=== PATIENT | female | born 1970 | race Two or more races ===

== ENCOUNTER → 2017-02-04 | Outpatient (CLI) | payer BC | END | disposition home or self-care (01) | LOC: CFH 09:25 | PROVIDERS: ATTEND Nurse Practitioner Women's Health | DX: Z12.31 Encounter for screening mammogram for malignant neoplasm of breast (principal) | CPT/HCPCS: G0202 ==

== ENCOUNTER → 2018-04-05 | Outpatient (CLI) | payer OTHER | END | disposition home or self-care (01) | LOC: CFH 09:55 | PROVIDERS: ATTEND Nurse Practitioner Women's Health | DX: Z12.31 Encounter for screening mammogram for malignant neoplasm of breast (principal) | CPT/HCPCS: 77067 ==

== ENCOUNTER 2019-11-30 08:35 | Day surgery (SDC) | payer OTHER ==
[~2019-11-30] VITALS: Ht 152.4 cm; Wt 61.0 kg
--- NOTE | 2019-11-30 08:50 | NUR ---
CHAMP RN PRESENT DURING EKG. PT TOLERATED WITH NO COMPLICATIONS. PT REFUSES WHEELCHAIR TO BE TAKEN BACK TO ROOM
--- NOTE | 2019-11-30 09:12 | NUR ---
RN to bedside after being assessed by midlevel provider. Patient in room with family member. Patient is alert, oriented, changed into hospital gown. Patient is walking around in room. Awaiting orders.
[2019-11-30] MEDS ORDERED: ONDANSETRON 2MG/ML, 2ML IVPush ONE (09:30)
[2019-11-30] MEDS ORDERED: SODIUM CHLORIDE FLUSH 10ML SYR IVF ONE (09:30)
--- NOTE | 2019-11-30 09:37 | NUR ---
ATTEMPTED US...PT GETTING IV
[2019-11-30] MEDS ORDERED: ONDANSETRON 2MG/ML, 2ML ONE ×2 (09:45→12:34)
[2019-11-30] MEDS ORDERED: HYDROmorphone 1 MG/ML, 1ML INJ ONE ×2 (09:45→11:25)
[2019-11-30 09:52] VITALS: BP 133/76
[2019-11-30] MEDS: HYDROmorphone 2 MG/ML, 1ML IVPush PRN ×2 (09:52→11:41)
[2019-11-30 10:00] LABS: MEAN CORPUSCULAR HEMOGLOBIN 30.2 pg (27.0-34.8); MEAN CORPUSCULAR HGB CONC 33.7 g/dL (32.4-35.8); MEAN CORPUSCULAR VOLUME 89.6 fL (80-100); MEAN PLATELET VOLUME 8.9 fL (7.4-10.4); PLATELET COUNT 397 x10^3/uL (130-400); RED BLOOD COUNT 5.01 x10^6/uL (3.82-5.3); RED CELL DISTRIBUTION WIDTH 13.5 % (9.6-15.2)
[2019-11-30 10:03] LABS: ALANINE AMINOTRANSFERASE 25 U/L (12-78); ANION GAP 7 mmol/L (5-15); CALCIUM 9.3 mg/dL (8.5-10.1); CHLORIDE 107 mmol/L (98-107); CREATININE 0.85 mg/dL (0.55-1.02)
[2019-11-30 10:08] LABS: ALKALINE PHOSPHATASE 95 U/L (45-117); BILIRUBIN,TOTAL 0.4 mg/dL (0.2-1.0); TOTAL PROTEIN 7.9 g/dL (6.4-8.2)
[2019-11-30 10:30] LABS: MD YES
[2019-11-30 10:32] LABS: BAND#(MANUAL) 1.16 x10^3/uL; BANDS%(MANUAL) 6 % (0-7); LYMPH#(MANUAL) 1.75 x10^3/uL (1-3.4); LYMPHS% (MANUAL) 9 % (22-44); MONOS#(MANUAL) 0.78 x10^3/uL (0.3-2.7); MONOS% (MANUAL) 4 % (2-9); SEG#(MANUAL) 15.71 x10^3/uL (1.8-6.8); SEGS% (MANUAL) 81 % (42-75)
[2019-11-30 10:33] LABS: <PLATELET ESTIMATE> ADEQUATE; <PLT MORPHOLOGY> NORMAL PLT MORPH; <RBC MORPHOLOGY> NORMAL
[2019-11-30 10:36] LABS: MICROSCOPIC AUTO
[2019-11-30 10:37] LABS: CULTURE INDICATED? NO
[2019-11-30] MEDS ORDERED: CEFOTETAN PMX 1GM/50ML 50 ML ONE (11:25)
[2019-11-30] MEDS ORDERED: CEFOTETAN PMX 1GM/50ML 50 ML IV ONE (11:30)
[2019-11-30] MEDS ORDERED: LACTATED RINGERS 1,000 ML IVBOLUS ONE (11:30)
[2019-11-30] MEDS ORDERED: BUPIVACAINE/PF-EPI 0.25% 1:200K ONE (11:48)
[2019-11-30] MEDS ORDERED: CHLORHEXIDINE 15 ML UDC MM ONE (12:00)
[2019-11-30] MEDS ORDERED: PROPOFOL 50 ML ONE (12:01)
[2019-11-30] MEDS ORDERED: FENTANYL PF 250 MCG/5ML ONE (12:01)
[2019-11-30] MEDS ORDERED: MIDAZOLAM 1 MG/ML, 2ML ONE (12:01)
[2019-11-30] MEDS ORDERED: SUCCINYLCHOLINE 20 MG/ML, 10ML ONE (12:24)
[2019-11-30] MEDS ORDERED: PROPOFOL 10 MG/ML, 20ML ONE (12:34)
[2019-11-30] MEDS ORDERED: ROCURONIUM 10MG/ML,5ML ONE (12:34)
[2019-11-30] MEDS ORDERED: KETOROLAC 30 MG/1 ML ONE (12:34)
[2019-11-30] MEDS ORDERED: EPHEDRINE 50 MG/ML, 1ML IM PRN (13:00)
[2019-11-30] MEDS ORDERED: ONDANSETRON ODT 8 MG PO PRN (13:00)
[2019-11-30] MEDS ORDERED: DIAZEPAM 5 MG/ML, 2ML IVPush PRN (13:00)
[2019-11-30] MEDS ORDERED: DIPHENHYDRAMINE 50 MG/ML, 1ML IVPush PRN (13:00)
[2019-11-30] MEDS ORDERED: MEPERIDINE/PF 25MG/ML,1ML IVPush PRN (13:00)
[2019-11-30] MEDS ORDERED: ACETAMINOPHEN 325 MG TABLET PO PRN (13:00)
[2019-11-30] MEDS ORDERED: OXYcodone 5 MG/5 ML ORAL.SOL UDC PO PRN (13:00)
[2019-11-30] MEDS ORDERED: ONDANSETRON 2MG/ML, 2ML IV PRN (13:00)
[2019-11-30] MEDS ORDERED: HYDROmorphone 2 MG/ML, 1ML IVPush PRN (13:00)
[2019-11-30] MEDS ORDERED: PROMETHAZINE 25 MG/ML, 1ML IV PRN (13:00)
[2019-11-30] MEDS ORDERED: EPHEDRINE 50 MG/ML, 1ML ONE (13:14)
[2019-11-30] MEDS ORDERED: OXYcodone 5 MG/5 ML ORAL.SOL UDC ONE (14:14)
[2019-11-30] MEDS ORDERED: FENTANYL PF 100 MCG/2ML ONE (14:14)
[2019-11-30] MEDS: FENTANYL PF 100 MCG/2ML IV PRN ×2 (14:17→14:22)
== END 2019-11-30 17:20 | disposition home or self-care (01) ==
LOC: ED 09:46 → OR 09:46 → EDSTATUS 11:06 → UNDOADMIN 11:30 → EDIP 11:30 → OR 17:20 → ED 17:20
PROVIDERS: ATTEND Emergency Medicine
DX: K80.12 Calculus of gallbladder with acute and chronic cholecystitis without obstruction (principal); Z88.2 Allergy status to sulfonamides
CPT/HCPCS: 36415; 47562; 76700; 80053; 81001; 83690; 84703; 85025; 88304; 93005; 96374; 96375; 96376; 99285; J0330; J1170; J1885; J2250; J2405; J2704; J3010; J3490; J7120

== ENCOUNTER 2020-05-03 12:27 | Outpatient (CLI) | payer OTHER | END 2020-05-03 23:59 | disposition home or self-care (01) | LOC: CFH 12:27 | PROVIDERS: ATTEND Nurse Practitioner Women's Health | DX: Z12.31 Encounter for screening mammogram for malignant neoplasm of breast (principal) | CPT/HCPCS: 77063; 77067 ==